=== PATIENT | female | born 1980 | race Caucasian/White ===

== ENCOUNTER 2018-01-01 19:32 | Emergency (ER) | payer OTHER ==
[2018-01-01] MEDS ORDERED: ONDANSETRON 4 MG TABLET PO ONE (19:43)
--- NOTE | 2018-01-01 19:44 | PDOC ---
Rapid Medical Evaluation Chief Complaint: Nausea/Vomiting Time Seen by Provider: 01/01/18 19:41 Medical Evaluation: Allergies Allergy/AdvReac Type Severity Reaction Status Date / Time No Known Allergies Allergy Verified 03/04/16 19:57 ate salad at 1 pm and patient has been vomiting since then. denies abdominal pain diarrhea. history of bariatric surgery PE: patient alert ox3 no abdominal tenderness on palpation A: nausea and vomiting P: Ua, Urine ; zofran patient to the ER for further management
[2018-01-01 19:45] VITALS: BP 131/78; PULSE 96; TEMP 98.8; BMI 35.9
[2018-01-01] MEDS ORDERED: ONDANSETRON *ODT* 4 MG TABLET ONE (20:07)
[2018-01-01 20:45] LABS: HCG,QUALITATIVE URINE POSITIVE
[2018-01-01] MEDS ORDERED: SODIUM CHLORIDE 1,000 ML IV STA (20:52)
[2018-01-01] MEDS ORDERED: METOCLOPRAMIDE HCL INJECTION 10 MG/2 ML VIAL IVPUSH ONE (20:52)
[2018-01-01 20:53] LABS: URINE APPEARANCE CLEAR; URINE BILIRUBIN NEGATIVE (<2.0 mg/dL); URINE COLOR STRAW; URINE GLUCOSE (UA) NEGATIVE (NEGATIVE); URINE KETONE NEGATIVE (NEGATIVE); URINE LEUK ESTERASE NEGATIVE (NEGATIVE); URINE NITRITE NEGATIVE (NEGATIVE); URINE PROTEIN NEGATIVE (NEGATIVE); URINE UROBILINOGEN NEGATIVE mg/dL (0.2-1.0)
--- NOTE | 2018-01-01 21:42 | PDOC ---
History of Present Illness - General History Source: Patient Exam Limitations: No Limitations - History of Present Illness Initial Comments: 01/01/18 21:53 The patient is a 37 year old female, with a significant past medical history of HTN s/p gastric sleeve, who presents to the emergency department with, nausea and emesis. The patient reports her nausea onset after eating lunch. She describes her lunch as abnormal in comparison to her normal meals since her surgery. She describes her emesis as yellow. She denies any recent sick contacts. She denies recent fevers, chills, headache or dizziness. She denies diarrhea or constipation. She denies recent dysuria, frequency, urgency or hematuria. She denies recent chest pain or shortness of breath. Allergies: NKA Past surgical history: Appendectomy. Cholecystectomy. Social history: Nonsmoker. Denies EtOH use and recreational drug use. Primary Care Physician: Dr. Guillen <Savi Dominguez - Last Filed: 01/01/18 21:53> - General History Source: Patient <David Merino - Last Filed: 01/01/18 23:45> - General Chief Complaint: Nausea/Vomiting Stated Complaint: NAUSEA/VOMITING Time Seen by Provider: 01/01/18 19:41 Past History <Savi Dominguez - Last Filed: 01/01/18 21:53> - Past Medical History Asthma: Yes COPD: No HTN: Yes - Surgical History Abdominal Surgery: Yes (tubal ligation) Gastric Stapling: Yes (sleeve) - Immunization History Immunization Up to Date: Yes - Suicide/Smoking/Psychosocial Hx Smoking History: Never smoked Have you smoked in the past 12 months: No Information on smoking cessation initiated: No Hx Alcohol Use: No Drug/Substance Use Hx: No Substance Use Type: None <David Merino - Last Filed: 01/01/18 23:45> - Past Medical History Allergies/Adverse Reactions: Allergies Allergy/AdvReac Type Severity Reaction Status Date / Time No Known Allergies Allergy Verified 01/01/18 19:55 Home Medications: Ambulatory Orders Albuterol 0.083% Nebulizer Rina [Ventolin 0.083% Nebulizer Soln -] 1 neb NEB Q4H PRN 03/04/16 Cholecalciferol (Vitamin D3) [Vitamin D3] 1,000 unit PO DAILY 03/04/16 Cyanocobalamin [Vitamin B12 -] 1,000 mcg PO DAILY 03/04/16 Multivitamin [Poly-Vitamin] 1 each PO DAILY 03/04/16 Nifedipine ER [Procardia XL -] 30 mg PO DAILY 03/04/16 Doxycycline Hyclate 100 mg PO BID #20 capsule 03/08/16 Ondansetron [Zofran *Odt*] 4 mg SL TID #30 od.tablet 01/01/18 Review of Systems - Review of Systems Able to Perform ROS?: Yes Comments:: 01/01/18 21:53 CONSTITUTIONAL: Absent: fever, no chills, no fatigue EYES: Absent: visual changes ENT: Absent: ear pain, no sore throat CARDIOVASCULAR: Absent: chest pain, no palpitations RESPIRATORY: Absent: cough, no SOB GI: Present: Nausea. Vomiting. Absent: abdominal pain, no constipation, no diarrhea GENITOURINARY: Absent: dysuria, no frequency, no hematuria MUSKULOSKELETAL: Absent: back pain, no arthralgia, no myalgia SKIN: Absent: rash NEURO: Absent: headache All Other Systems: Reviewed and Negative <Savi Dominguez - Last Filed: 01/01/18 21:53> *Physical Exam - Vital Signs Last Vital Signs Temp Pulse Resp BP Pulse Ox 98.8 F 96 H 16 131/78 97 01/01/18 19:42 01/01/18 19:42 01/01/18 19:42 01/01/18 19:42 01/01/18 19:42 - Physical Exam Comments: 01/01/18 21:54 GENERAL: Well-appearing, well-nourished. No apparent distress. HEENT: Normocephalic, atraumatic. PERRL, EOM intact. CARDIOVASCULAR: Normal S1, S2. Regular rate and rhythm. PULMONARY: Clear to auscultation bilaterally. +ABDOMEN: Mildly diffuse tenderness. Soft, non-distended. EXTREMITIES: Normal ROM in all four extremities. No gross deformities. SKIN: Warm, dry. No rash NEUROLOGICAL: No focal neurological deficits. <Savi Dominguez - Last Filed: 01/01/18 21:53> - Vital Signs Last Vital Signs Temp Pulse Resp BP Pulse Ox 98.8 F 96 H 16 131/78 97 01/01/18 19:42 01/01/18 19:42 01/01/18 19:42 01/01/18 19:42 01/01/18 19:42 <David Merino - Last Filed: 01/01/18 23:45> ED Treatment Course - ADDITIONAL ORDERS Additional order review: Laboratory Results 01/01/18 19:55 Urine Color Straw Urine Appearance Clear Urine pH 6.0 Ur Specific [place] 1.006 Urine Protein Negative Urine Glucose (UA) Negative Urine Ketones Negative Urine Blood Negative Urine Nitrite Negative Urine Bilirubin Negative Urine Urobilinogen Negative Ur Leukocyte Esterase Negative Urine HCG, Qual Positive - Medications Given in the ED: ED Medications Discontinued Medications Generic Name Dose Route Start Last Admin Trade Name Freq PRN Reason Stop Dose Admin Ondansetron HCl 4 mg 01/01/18 19:43 01/01/18 20:08 Zofran - PO 01/01/18 19:44 4 mg ONCE ONE Administration <Savi Dominguez - Last Filed: 01/01/18 21:53> - LABORATORY CBC & Chemistry Diagram: 01/01/18 21:53 01/01/18 21:53 - ADDITIONAL ORDERS Additional order review: Laboratory Results 01/01/18 19:55 Urine Color Straw Urine Appearance Clear Urine pH 6.0 Ur Specific [place] 1.006 Urine Protein Negative Urine Glucose (UA) Negative Urine Ketones Negative Urine Blood Negative Urine Nitrite Negative Urine Bilirubin Negative Urine Urobilinogen Negative Ur Leukocyte Esterase Negative Urine HCG, Qual Positive - Medications Given in the ED: ED Medications Discontinued Medications Generic Name Dose Route Start Last Admin Trade Name Freq PRN Reason Stop Dose Admin Ondansetron HCl 4 mg 01/01/18 19:43 01/01/18 20:08 Zofran - PO 01/01/18 19:44 4 mg ONCE ONE Administration <David Merino - Last Filed: 01/01/18 23:45> Medical Decision Making - Medical Decision Making 01/01/18 23:45 Dr. Merino: The scribe's documentation has been prepared under my direction and personally reviewed by me in its entirery. I confirm that the note above accurately reflects all work, treatment, procedures, and medical decision making performed by me. <David Merino - Last Filed: 01/01/18 23:45> *DC/Admit/Observation/Transfer - Attestations Scribe Attestion: 01/01/18 21:54 Documentation prepared by Savi Dominguez, acting as director medical writing for David Merino DO. <Savi Dominguez - Last Filed: 01/01/18 21:53> - Discharge Dispostion Decision to Admit order: No <David Merino - Last Filed: 01/01/18 23:45> Diagnosis at time of Disposition: Nausea - Discharge Dispostion Disposition: HOME Condition at time of disposition: Improved - Prescriptions Prescriptions: Ondansetron [Zofran *Odt*] 4 mg SL TID #30 od.tablet - Referrals Referrals: Jeff Guillen MD [Primary Care Provider] - - Patient Instructions Printed Discharge Instructions: DI for Nausea -- Adult Additional Instructions: Take medication as directed. Return if symptoms don't improve. - Post Discharge Activity
[2018-01-01] MEDS ORDERED: METOCLOPRAMIDE HCL INJECTION 10 MG/2 ML VIAL ONE (21:45)
[2018-01-01 22:19] LABS: BASO % 0.2 % (0-2.0); EOS % 1.1 % (0-4.5); HEMATOCRIT 42.1 % (32.4-45.2); HEMOGLOBIN 14.3 GM/dL (10.7-15.3); LYMPH % 8.2 % (8-40); MCH 30.2 pg (25.7-33.7); MCHC 33.8 g/dl (32.0-36.0); MEAN CELL VOLUME 89.3 fl (80-96); MEAN PLT VOLUME 8.1 fl (7.5-11.1); MONO % 2.7 % (3.8-10.2); NEUT % 87.8 % (42.8-82.8); PLATELET COUNT 199 K/MM3 (134-434); RBC 4.72 M/mm3 (3.60-5.2); RDW 12.8 % (11.6-15.6); WHITE BLOOD COUNT 9.9 K/mm3 (4.0-10.0)
[2018-01-02 00:27] LABS: ALBUMIN 4.3 g/dl (3.5-5.0); ALK PHOS 79 U/L (32-92); AMYLASE 134 U/L (25-125); ANION GAP 10 (8-16); BILIRUBIN,TOTAL 0.5 mg/dl (0.2-1.0); BLOOD UREA NITROGEN 15 mg/dl (7-18); CALCIUM 9.1 mg/dl (8.4-10.2); CHLORIDE 101 mmol/L (98-107); CO2 26 mmol/L (22-28); CREATININE 0.7 mg/dl (0.6-1.3); GLUCOSE,RANDOM 116 mg/dl (74-106); MAGNESIUM 1.9 mg/dL (1.8-2.4); POTASSIUM 3.4 mmol/L (3.5-5.1); SGOT/AST 43 U/L (10-42); SGPT/ALT 45 U/L (10-40); SODIUM 137 mmol/L (136-145); TOT PROT 7.9 g/dl (6.4-8.3)
[2018-01-02 12:48] LABS: LIPASE 370 U/L (73-393)
== END 2018-01-01 23:59 | disposition home or self-care (01) ==
LOC: JER 19:32
PROC: 3E033GC Introduction of Other Therapeutic Substance into Peripheral Vein, Percutaneous Approach (ICD-10-PCS; principal; 2018-01-01)
PROC: 3E0337Z Introduction of Electrolytic and Water Balance Substance into Peripheral Vein, Percutaneous Approach (ICD-10-PCS; 2018-01-01)
DX: R11.0 Nausea (principal)
CPT/HCPCS: 36415; 80053; 81003; 82150; 82553; 83690; 83735; 84703; 85025; 99282-25; J7030

== ENCOUNTER 2020-07-03 14:14 | Emergency (ER) | payer OTHER ==
[2020-07-03 14:21] VITALS: BMI 36.1
[2020-07-03] MEDS ORDERED: SODIUM CHLORIDE 1,000 ML IV STA (14:51)
[2020-07-03 15:18] LABS: BASO % 0.5 % (0-2.0); EOS % 0.6 % (0-4.5); HEMATOCRIT 37.2 % (32.4-45.2); HEMOGLOBIN 12.5 GM/dL (10.7-15.3); LYMPH % 20.5 % (8-40); MCH 29.8 pg (25.7-33.7); MCHC 33.5 g/dl (32.0-36.0); MEAN CELL VOLUME 88.9 fl (80-96); MEAN PLT VOLUME 7.6 fl (7.5-11.1); NEUT % 71.4 % (42.8-82.8); PLATELET COUNT 206 K/MM3 (134-434); RBC 4.19 M/mm3 (3.60-5.2); RDW 13.9 % (11.6-15.6); WHITE BLOOD COUNT 7.4 K/mm3 (4.0-10.0)
[2020-07-03 15:26] LABS: CHLORIDE 100 mmol/L (98-107); POTASSIUM 3.8 mmol/L (3.5-5.1); SODIUM 136 mmol/L (136-145)
[2020-07-03 15:28] LABS: ALBUMIN 3.7 g/dl (3.4-5.0); ANION GAP 6 MMOL/L (8-16); BLOOD UREA NITROGEN 11.8 mg/dL (7-18); CO2 31 mmol/L (21-32); GLUCOSE,RANDOM 89 mg/dL (74-106)
[2020-07-03 15:31] LABS: SGOT/AST 29 U/L (15-37); SGPT/ALT 33 U/L (13-61)
[2020-07-03 15:32] LABS: CREATININE 0.7 mg/dL (0.55-1.3)
[2020-07-03 15:34] LABS: ALK PHOS 95 U/L (45-117); BILIRUBIN,TOTAL 0.2 mg/dL (0.2-1); TOT PROT 7.8 g/dl (6.4-8.2)
[2020-07-03 16:48] VITALS: BP 142/65; PULSE 89; TEMP 98
== END 2020-07-03 16:52 | disposition home or self-care (01) ==
LOC: JER 14:14
PROC: 3E0337Z Introduction of Electrolytic and Water Balance Substance into Peripheral Vein, Percutaneous Approach (ICD-10-PCS; principal; 2020-07-03)
DX: F41.0 Panic disorder [episodic paroxysmal anxiety] (principal)
CPT/HCPCS: 36415; 71045-TC-FY; 80053; 84443; 84484; 84703; 85025; 93005; 93010; 99285-25